=== PATIENT | female | born 1980 | race Two or more races ===

== ENCOUNTER 2024-08-19 13:33 | Outpatient (AMB) | payer BC, SELFPAY ==
[2024-08-19 13:38] VITALS: BP 126/70; PULSE 104; O2SAT 100; BMI 22.6
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
== END 2024-08-19 13:59 | disposition home or self-care (01) ==
PROVIDERS: PCP Internal Medicine; Visit Provider Physician Assistant
DX: Z00.00 Encounter for general adult medical examination without abnormal findings (principal); F31.32 Bipolar disorder, current episode depressed, moderate; Z12.31 Encounter for screening mammogram for malignant neoplasm of breast; M54.50 Low back pain, unspecified; G89.29 Other chronic pain; N93.8 Other specified abnormal uterine and vaginal bleeding; Z12.11 Encounter for screening for malignant neoplasm of colon

== ENCOUNTER → 2024-08-19 13:33 | Outpatient (BNVA) | payer BC, SELFPAY | PROVIDERS: PCP Internal Medicine; Visit Provider Physician Assistant | DX: Z00.00 Encounter for general adult medical examination without abnormal findings (principal); F31.32 Bipolar disorder, current episode depressed, moderate; G89.29 Other chronic pain; M54.50 Low back pain, unspecified; N93.8 Other specified abnormal uterine and vaginal bleeding; Z79.899 Other long term (current) drug therapy; Z28.21 Immunization not carried out because of patient refusal | CPT/HCPCS: 90471; 96127 ==

== ENCOUNTER 2024-08-21 09:42 | Outpatient (REF) | payer BC, SELFPAY ==
[2024-08-21 10:18] LABS: Hematocrit 27.2 % (37.0-47.0); Hemoglobin 7.3 g/dl (12.0-16.0); Mean Corpuscular HGB Conc 26.8 g/dl (31.0-35.0); Mean Corpuscular Hemoglobin 17.7 pg (27.0-33.0); Mean Platelet Volume 9.2 fL (9.4-12.3); Platelet Count 353 X10*3/uL (160-400); Red Blood Count 4.12 X10*6/uL (4.20-5.50); Red Cell Distribution Width 21.3 % (11.0-16.0); White Blood Count 7.4 X10*3/uL (4.8-10.8)
[2024-08-21 10:45] LABS: Alanine Aminotransferase 13 U/L (0-31); Albumin Level 4.3 g/dL (3.5-5.0); Alkaline Phosphatase 65 U/L (39-117); Anion Gap 10 (12-20); Aspartate Amino Transferase 18 U/L (5-31); Bilirubin Total 0.3 mg/dL (0.0-1.0); Blood Urea Nitrogen 15 mg/dL (9-16); Calcium 9.3 mg/dL (8.4-10.2); Carbon Dioxide 25 mmol/L (22-29); Chloride 109 mmol/L (96-108); Estimated Glomerular Filt Rate > 60; Glucose Fasting 90 mg/dL (60-99); Iron 16 mcg/dL (30-160); Percent Iron Saturation 4 % (15-50); Potassium 4.8 mmol/L (3.3-5.1); Sodium 139 mmol/L (135-145); Total Iron Binding Capacity 381 mcg/dL (228-428); Total Protein 7.5 g/dL (6.5-8.0); Unsaturated Iron Binding 365 ug/dL
== END 2024-08-21 09:43 | disposition home or self-care (01) ==
LOC: HO.LAB 09:42
PROVIDERS: Physician Assistant; PCP Internal Medicine; Visit Provider Internal Medicine
DX: D50.9 Iron deficiency anemia, unspecified (principal); N93.8 Other specified abnormal uterine and vaginal bleeding; Z13.1 Encounter for screening for diabetes mellitus
CPT/HCPCS: 36415; 80053; 83540; 85027

== ENCOUNTER → 2024-09-21 11:15 | Outpatient (BNV) | payer BC, SELFPAY | PROVIDERS: PCP Internal Medicine; Visit Provider Internal Medicine Medical Oncology | DX: D50.9 Iron deficiency anemia, unspecified (principal) | CPT/HCPCS: 99204 ==

== ENCOUNTER 2024-10-06 11:24 | Outpatient (REF) | payer BC, SELFPAY | END 2024-10-06 11:25 | disposition home or self-care (01) | LOC: HO.MAMMO 11:24 | PROVIDERS: PCP Physician Assistant; Visit Provider Physician Assistant | DX: Z12.31 Encounter for screening mammogram for malignant neoplasm of breast (principal) | CPT/HCPCS: 77063; 77067 ==

== ENCOUNTER → 2024-10-06 11:30 | Outpatient (BNV) | payer BC, SELFPAY | PROVIDERS: PCP Physician Assistant; Visit Provider Internal Medicine | DX: Z12.31 Encounter for screening mammogram for malignant neoplasm of breast (principal) | CPT/HCPCS: 77063; 77067 ==

== ENCOUNTER 2024-11-24 11:00 | Outpatient (RCR) | payer BC, SELFPAY ==
[2024-09-29 11:19] VITALS: BP 94/54; PULSE 70; RESP 14; TEMP 36.6; O2SAT 100
[2024-09-29] MEDS: Iron Sucrose Complex 200 MG/10 ML VIAL IVPUSH (11:26)
[2024-09-29] MEDS: 0.9 % Sodium Chloride Flush 10 ML SYRINGE 5 ML IVFLUSH (11:33)
[2024-10-06 13:25] VITALS: BP 109/59; PULSE 80; RESP 16; TEMP 37.2; O2SAT 100
[2024-10-06] MEDS: Iron Sucrose Complex 200 MG/10 ML VIAL IVPUSH (13:32)
[2024-10-13 13:59] VITALS: BP 128/66; PULSE 87; RESP 16; TEMP 36.6; O2SAT 100
[2024-10-13] MEDS: Iron Sucrose Complex 200 MG/10 ML VIAL IVPUSH (14:03)
[2024-10-20 10:19] VITALS: BP 112/67; PULSE 77; RESP 16; TEMP 36.1; O2SAT 98
[2024-10-20] MEDS: Iron Sucrose Complex 200 MG/10 ML VIAL IVPUSH (10:27)
[2024-10-20 10:56] LABS: Hematocrit 34.6 % (37.0-47.0); Hemoglobin 10.3 g/dl (12.0-16.0); Mean Corpuscular HGB Conc 29.8 g/dl (31.0-35.0); Mean Corpuscular Hemoglobin 22.6 pg (27.0-33.0); Mean Platelet Volume 9.3 fL (9.4-12.3); Platelet Count 343 X10*3/uL (160-400); Red Blood Count 4.55 X10*6/uL (4.20-5.50); Red Cell Distribution Width 30.9 % (11.0-16.0); White Blood Count 6.3 X10*3/uL (4.8-10.8)
[2024-10-20 12:07] LABS: Ferritin 113 ng/mL (10-250)
[2024-10-27 10:39] VITALS: BP 99/56; PULSE 68; RESP 14; TEMP 36.6; O2SAT 99
[2024-10-27] MEDS: Iron Sucrose Complex 200 MG/10 ML VIAL IVPUSH (10:49)
[2024-11-06 13:36] VITALS: BP 110/49; PULSE 59; RESP 20; TEMP 36.8; O2SAT 100
[2024-11-06] MEDS: Iron Sucrose Complex 200 MG/10 ML VIAL IVPUSH (13:43)
[2024-11-17 10:57] VITALS: BP 105/54; PULSE 58; RESP 14; TEMP 36.3; O2SAT 100
[2024-11-17] MEDS: Iron Sucrose Complex 200 MG/10 ML VIAL IVPUSH (11:04)
[2024-11-24 11:00] VITALS: BP 111/48; RESP 14; TEMP 36.5; O2SAT 99
[2024-11-24] MEDS: Iron Sucrose Complex 200 MG/10 ML VIAL IVPUSH (11:14)
--- NOTE | 2024-11-24 11:14 | HO.INF ---
phlebotomy at bedside for labs
[2024-11-24 11:30] LABS: Hematocrit 40.9 % (37.0-47.0); Hemoglobin 12.8 g/dl (12.0-16.0); Mean Corpuscular HGB Conc 31.3 g/dl (31.0-35.0); Mean Corpuscular Hemoglobin 26.6 pg (27.0-33.0); Mean Corpuscular Volume 84.9 fL (80.0-98.0); Mean Platelet Volume 9.9 fL (9.4-12.3); Platelet Count 213 X10*3/uL (160-400); Red Blood Count 4.82 X10*6/uL (4.20-5.50); Red Cell Distribution Width 26.9 % (11.0-16.0); White Blood Count 6.4 X10*3/uL (4.8-10.8)
[2024-11-24 12:44] LABS: Ferritin 246 ng/mL (10-250)
== END 2024-11-24 11:22 | disposition home or self-care (01) ==
LOC: HO.INF 11:00
PROVIDERS: Visit Provider Internal Medicine Medical Oncology
DX: D50.9 Iron deficiency anemia, unspecified (principal)
CPT/HCPCS: 36415; 82728; 85027; 96374; J1756

== ENCOUNTER 2025-09-14 09:40 | Emergency (ER) | payer SELFPAY ==
--- NOTE | ~2025-09-14 | XR_ITS ---
EXAMINATION: XR CHEST CLINICAL INFORMATION: cough, cp COMPARISON: January 18, 2017 TECHNIQUE: PA and lateral views. FINDINGS: Hyperinflated lungs. No consolidation, pleural effusion or pneumothorax. Cardiomediastinal silhouette size is normal. Mild S-shaped curvature of the thoracolumbar spine. Mild endplate sclerosis at multiple levels. XR/XR chest 2V IMPRESSION: Hyperinflated lungs without acute airspace disease. Electronically signed by: Inocencio Akers MD 09/14/2025 11:24 AM PERLA
--- NOTE | 2025-09-14 09:44 | ECG_ITS ---
Test Reason : chest tightness Blood Pressure : */* mmHG Vent. Rate : 76 BPM Atrial Rate : 76 BPM P-R Int : 138 ms QRS Dur : 68 ms QT Int : 378 ms P-R-T Axes : 53 54 44 degrees QTcB Int : 425 ms Normal sinus rhythm Normal ECG No previous ECGs available Referred By: Generic ED Physician Electronically Signed By: RADHIKA HEALY
[2025-09-14 09:57] VITALS: BP 122/57; PULSE 82; RESP 18; TEMP 36.6; O2SAT 98; BMI 23.4
--- NOTE | 2025-09-14 10:01 | ED_ITS ---
HPI - URI/Sore Throat General Chief Complaint: Upper Respiratory Symptoms Stated Complaint: chest pain, cough Time Seen by Provider: 09/14/25 10:39 Source: patient Mode of arrival: ambulatory Limitations: no limitations History of Present Illness ED Provider: Narda Davis PA-C HPI Narrative: Patient is a 45 year old assigned female at with a history of bipolar disorder and anemia presenting to the emergency department today with a cough and nasal congestion. Patient states that over the last 7 days she has had a cough and nasal congestion. Patient denies any other complaints at this time. Related Data Previous Rx's ?Medication ?Instructions ?Recorded diclofenac sodium 75 mg 75 mg PO BID PRN pain 10 day s #20 08/19/24 tablet,delayed release tabs ferrous sulfate 325 mg (65 mg 325 mg PO BID 30 days #6 0 tabs 08/24/24 iron) tablet quetiapine 200 mg tablet 200 mg PO DAILY 30 days #30 tabs 08/24/25 doxycycline hyclate 100 mg tablet 100 mg PO BID 7 days #14 tabs 09/14/25 prednisone 20 mg tablet 40 mg (2 x 20 mg) PO DAILY C OPD 09/14/25 exacerbation 5 days #10 tabs Allergies Allergy/AdvReac Type Severity Reaction Status Date / Time penicillin V Allergy Unknown rash Verified 09/14/25 10:00 Penicillins Allergy Unknown RASH Verified 09/14/25 10:00 Review of Systems Constitutional: Constitutional: Reports as per HPI Eyes: Eyes: Reports as per HPI ENT: Reports as per HPI Cardiovascular: Cardiovascular: Reports as per HPI Respiratory: Respiratory: Reports as per HPI Gastrointestinal: Gastrointestinal: Reports as per HPI Genitourinary: Genitourinary: Reports as per HPI Musculoskeletal: Musculoskeletal: Reports as per HPI Integumentary/Breasts: Skin/Breast: Reports as per HPI Neurologic: Reports as per HPI Psychiatric: Psychiatric: Reports as per HPI Endocrine: Endocrine: Reports as per HPI Hematologic/Lymphatic: Hematologic/Lymphatic: Reports as per HPI Allergic/Immunologic: Allergic/Immunologic: Reports as per HPI PMFSH Past Medical History Attestation statement: The following information was validated with the patient. Source: old records reviewed and nursing notes reviewed Family History Family History Mother Breast cancer Social History Social History Household Members: Significant Other and Family Housing: Apartment Alcohol intake: current Alcohol intake frequency: holidays/special occasions only Alcohol type: wine Patient Tobacco Use Status: Current everyday Tobacco user e-Cigarette/Vaping Use: Never Used Second Hand Smoke Exposure: No Substance Use Type: Marijuana Advance Directives: No Advance Directives Information Provided: Yes Do you have a plan to hurt others: No Plan service: No Current occupational status: employed Current occupation: [employer] Physical Exam Vital Signs: Vital Signs: Last Vital Signs Temp 97.8 F 09/14/25 11:49 Pulse 68 09/14/25 11:49 Resp 16 09/14/25 11:49 BP 122/68 09/14/25 11:49 Pulse Ox 98 09/14/25 11:49 O2 Del Method Room Air 09/14/25 09:57 BMI result Body Mass Index 23.4 Const: General: cooperative, no acute distress, alert and awake Nutritional Appearance: well nourished Orientation/consciousness: patient oriented x3 HEENT: Head: Yes normal to inspection and Yes atraumatic Ears: hearing grossly normal bilaterally and external ears normal General nose exam: Normal external nose present, no nasal discharge noted and no epistaxis Face and sinus: Yes normal facial exam, No abrasion and No laceration Mouth: Normal oral and palatal mucosa present, no drooling and no muffled voice Eyes: General: appearance normal, both eyes and all related structures Periorbital: periorbital findings normal Eyelids: Yes eyelids normal Conjunctivae: conjunctivae normal Pupils: Equal, round and reactive pupils present EOM: EOMs intact bilaterally Neck: Neck: Yes normal visual inspection and Yes full ROM Resp: Effort & Inspection: normal respiratory effort and able to speak in complete sentences Neuro: General: patient oriented x3, moves all extremities and CN's II-XI intact bilaterally Cranial nerves: Yes Equal, round and reactive pupils present Cognition (Neuro): normal cognition Extrem: General: Yes normal to inspection, Yes full ROM and Yes capillary refill normal Psych: Appearance: grossly normal Mental Status: mental status grossly normal Affect: normal affect Attitude: cooperative Thought process: Normal thought process present Thought content: Normal thought content present Insight: Good insight present (Psych) Course Course Course Narrative: This is an RME: Additional HPI, ROS, PE not included below will be deferred to primary provider. RME assessment and note performed by: Ely Lafleur PA-C This is a [id number], with a hx of depression and anxiety, who presents to the ER with complaints of cough and congestion which started 1 week ago. Reports chest pain only with cough. Well appearing, lungs CTAB. Plan: viral swabs, cxr, further ER eval needed Medical Decision Making Medical Decision Making [facility] Narrative: Patient is a 45 year old assigned female at with a history of bipolar disorder and anemia presenting to the emergency department today with a cough and nasal congestion. Patient's physical exam was as noted in the physical exam portion of this note. Patient's COVID-19, influenza, and RSV testing was negative. Patient's chest x-ray showed no acute process. Given patient's length of symptoms - will cover with ABX. I explained my physical exam findings as well as all test results to the patient. I answered all questions asked by the patient. I stressed the importance of the patient taking her medication as directed (either prescribed or as the over the counter packaging recommends). I stressed the importance of the patient following up with her primary care provider. I stressed the importance of the patient returning to the emergency department immediately if her symptoms were to worsen or if she were to develop any dizziness, shortness of breath, difficulty breathing, chest pain, blurry vision, loss of vision, nausea, vomiting, abdominal pain, fever, chills, back pain, or any other complaints. Patient verbalized agreement and understanding with this treatment plan and discharge. Differential Diagnosis Differential Diagnoses: The differential diagnosis associated with the presentation includes Cough Congestion COVID-19 Influenza RSV Viral illness PNA Admission/Observation Consideration of admission/observation: Escalation of care including admission/observation considered Patient would have been admitted to the hospital had her work up had any findings where hospital admission was appropriate and her clinical presentation warranted hospital admission. Lab Data [facility] Lab Attestation statement: I reviewed the patient's lab results. My interpretation of these results are in the MDM Rationale portion of this note. Labs: Lab Results 09/14/25 Range/Units 10:15 Influenza Type A (PCR) NEGATIVE (Negative) Influenza Type B (PCR) NEGATIVE (Negative) RSV RNA Qual (PCR) NEGATIVE (Negative) SARS-CoV-2 RNA (RT-PCR) NEGATIVE (Negative) Independent Interpretation I performed an independent interpretation of an: Plain X-Ray Interpretation: My interpretation is in agreement with the radiologist's impression of this imaging study. Reason for Exam: cough, cp EXAMINATION: XR CHEST CLINICAL INFORMATION: cough, cp COMPARISON: January 18, 2017 TECHNIQUE: PA and lateral views. FINDINGS: Hyperinflated lungs. No consolidation, pleural effusion or pneumothorax. Cardiomediastinal silhouette size is normal. Mild S-shaped curvature of the thoracolumbar spine. Mild endplate sclerosis at multiple levels. XR/XR chest 2V IMPRESSION: Hyperinflated lungs without acute airspace disease. Electronically signed by: Inocencio Akers MD 09/14/2025 11:24 AM EST Dictated By: Inocencio Dominguez MD Signed By: Electronically signed by Inocencio Mckoy MD 09/14/25 1124 I independently interpreted this EKG and am in agreement with the below findings: Vent. Rate: 76 BPM Atrial Rate: 76 BPM P-R Int: 138 ms QRS Dur: 68 ms QT Int: 378 ms P-R-T Axes: 53 54 44 degrees QTcB Int: 425 ms Normal sinus rhythm Normal ECG No previous ECGs available Electronically Signed By: CHARLES HEALY Dictated By: Charles Healy MD Signed By: Electronically signed by Charles Healy MD 09/14/25 0222 Radiology Impression Discussion of test interpretation with radiology: I have reviewed the radiologist's reading. Prescription Management I considered prescription management with: Antibiotic (patient prescribed antibiotic as noted in the MDM Rationale portion of this note.) Discharge Plan Discharge Clinical Impression: URI (upper respiratory infection), Cough Patient Disposition: Home, Self-Care Instructions: Upper Respiratory Infection (DC) Additional Instructions: Take your medication as prescribed. Do not take it immediately before going to bed and be sure to swallow it with plenty of water. Avoid direct sunlight, iron, antacids, and Pepto Bismol while you're on it. Call your primary care provider if you develop any new ringing in your ears or new problems hearing.? IF you are prescribed home medications and/or you are taking over the counter medications at home - it is very important you continue to do so as prescribed / directed unless told otherwise. Follow up with a primary care provider. Return to the emergency department immediately if your symptoms worsen or if you develop any numbness, tingling, dizziness, shortness of breath, difficulty breathing, chest pain, blurry vision, loss of vision, nausea, vomiting, abdominal pain, fever, chills, back pain, or any other complaints. If you do not have a primary care provider - call any of the below numbers to establish and follow up with a primary care provider. [facility] Primary Care ([place]) [phone] [place] [address], [address] [facility] Primary Care ([address] [place]) [phone] [place] [address], [address] [facility], [address] [facility] Primary Care ([address] [place]) [phone] [place] [address], [address] [facility], [address] [facility] Primary Care ([place]) [phone] [place] [address], [address] [facility], [address] [facility] Family Medicine [phone] [address] [facility], [address] Please see the information below about our Patient Portal. If you are not yet enrolled in the [facility] Patient Portal, you will receive an enrollment email invitation following your visit to any [facility] setting. You may also self-enroll in the Patient Portal by visiting our website: [email or web address] The following information is required to access the Patient Portal: - Your [facility] Medical Record Number - Your personal home email address (must match what is in your electronic medical record, Registration staff can assist with this) - Name - Date of Capabilities of the Patient Portal: - Message some providers - View upcoming appointments - Access your health summary, medical history, and visit history - View current conditions and allergies - View procedure and lab results - View your medications, including guidelines, side effects, and precautions - Complete pre-appointment questionnaires requested by your provider - Ready summary reports of your office visits and procedures To access the Patient Portal Mobile Rachel, follow these directions: - Search [employer] in the Rachel Store or Google MailMeNetwork Store - Download the Rachel - Search for [facility] - Enter your login/password Prescriptions: New prednisone 20 mg tablet 40 mg PO DAILY 5 Days Qty: 10 0RF doxycycline hyclate 100 mg tablet 100 mg PO BID 7 Days Qty: 14 0RF No Action ferrous sulfate 325 mg (65 mg iron) tablet 325 mg PO BID 30 Days Qty: 60 1RF quetiapine 200 mg tablet 200 mg PO DAILY 30 Days Qty: 30 3RF diclofenac sodium 75 mg tablet,delayed release (DR/EC) 75 mg PO BID PRN (Reason: pain) 10 Days Qty: 20 0RF Referrals: Adriano Cano PA-C [Primary Care Provider, Internal Medicine] Stand Alone Forms: Work/School Release Interventions: ED Discharge Assessment Last Done: 09/14/25 11:49 Discharge Date/Time: 09/14/25 11:50 Print Language: Turkish
[2025-09-14 11:18] LABS: Resp Syncy Virus RNA Qual PCR NEGATIVE (Negative); SARS COV2 PCR INHOUSE NEGATIVE (Negative)
[2025-09-14 11:49] VITALS: BP 122/68; PULSE 68; RESP 16; TEMP 36.6; O2SAT 98
== END 2025-09-14 11:50 | disposition home or self-care (01) ==
PROVIDERS: Physician Assistant Medical; Emergency Provider Emergency Medicine; PCP Physician Assistant
DX: J06.9 Acute upper respiratory infection, unspecified (principal); R05.9 Cough, unspecified
CPT/HCPCS: 71046; 87637; 93005; 99283

== ENCOUNTER → 2025-09-14 09:44 | Outpatient (BNV) | payer SELFPAY | PROVIDERS: Emergency Provider Emergency Medicine; PCP Physician Assistant; Visit Provider Internal Medicine | DX: R07.89 Other chest pain (principal) | CPT/HCPCS: 93010 ==

== ENCOUNTER → 2025-09-14 10:03 | Outpatient (BNV) | payer SELFPAY | PROVIDERS: Emergency Provider Emergency Medicine; PCP Physician Assistant; Visit Provider Radiology Diagnostic Radiology | DX: J98.4 Other disorders of lung (principal) | CPT/HCPCS: 71046 ==